=== PATIENT | female | born 1980 | race African-American/Black ===

== ENCOUNTER 2023-02-14 12:26 | Emergency (ER) | payer SELFPAY ==
[2023-02-14 12:54] VITALS: BP 124/70; PULSE 79; RESP 16; TEMP 36.6; O2SAT 99
--- NOTE | 2023-02-14 13:57 | ED.GENADULT ---
HPI - General Adult General Chief complaint: Upper Respiratory Infection Stated complaint: Headache/SOB Source: patient Mode of arrival: ambulatory Limitations: no limitations History of Present Illness HPI narrative: Patient presents for evaluation of a headache that she has experienced since yesterday. Pain is in the frontal area as well as in the occipital region of her head. Frontal pain is throbbing in nature and occipital pain is sharp in quality. She rates her pain 8/10 in severity. No fever, chills, nausea, vomiting. She is concerned because her daughter recently tested positive for COVID. Patient has had COVID in the past in her initial symptom was headache. She has also experienced a nonproductive cough and mild shortness of breath. She is not taking any medication to assist with her symptoms. She smokes a quarter pack per day. Related Data Home Medications Medication Instructions Recorded Confirmed No Home Medications 02/14/23 02/14/23 Allergies Allergy/AdvReac Type Severity Reaction Status Date / Time No Known Allergies Allergy Verified 02/14/23 13:01 Review of Systems Review of Systems: CONSTITUTIONAL: Denies fever, chills, or sweats. EYES: Denies visual changes, redness, or discharge. ENT: Denies rhinorrhea, congestion, sore throat, or otalgia. CARDIOVASCULAR: Denies chest pain, palpitations, or edema. RESPIRATORY: reports cough and mild shortness of breath GASTROINTESTINAL: Denies abdominal pain, nausea, vomiting, or diarrhea. GENITOURINARY: Denies dysuria or hematuria. SKIN: Denies rash or itching. MUSCULOSKELETAL: Denies back pain, joint pain, or myalgia. NEUROLOGIC: Reports headache. Denies numbness, dizziness, or weakness. PSYCHIATRIC: Denies anxiety or depression. [facility] Past Medical History Medical History No pertinent past medical history Surgical History Surgical History History of Family History Family History Mother Family history non-contributory Social History Social History Smoking packs per day: 0.25 Smoking cigarettes per day: 5.0 Smoking status: Current every day smoker Substance use: never Living arrangements: with family Gender identity (if verbalized by the patient): Female Sexual Orientation (if Verbalized by the Patient): Straight or Heterosexual Spiritual care concerns: No Exam Narrative: GENERAL: Well-appearing, well-nourished, and in no acute distress. HEAD: Normocephalic, atraumatic. EYES: PERRLA and EOMI. ENT: Nares clear, no rhinorrhea or epistaxis. Mucous membranes moist. Oropharynx without tonsillar hypertrophy exudate or other lesions. Bilateral TMs pearly ballesteros nonbulging NECK: Supple. No adenopathy or masses. No carotid bruits or JVD CHEST: Clear to auscultation. No respiratory distress. No wheezes rales or rhonchi HEART: Regular rate and rhythm. No murmur heard. Normal peripheral pulses. ABDOMEN: Soft, nontender, nondistended, normal active bowel sounds. EXTREMITIES: Normal range of motion. No edema. SKIN: Warm, dry, no rash. NEURO: No focal deficits. Alert and oriented x3. PSYCH: Normal mood and affect. Course Course Emergency Course: this is a 42-year-old female who presented for evaluation of cough and headache after recent COVID exposure. COVID test here today negative. Recommended she repeat her test in 48 hours. Increase hydration. Cclz-rwa-uamxeto agents for symptom management. Follow up with primary provider. Go to the emergency department for worsening symptoms. Patient in agreement with plan of care per Level of Care: Express Care Visit Vital Signs Vital signs: Vital Signs Temperature 36.6 C 02/14/23 12:54 Pulse Rate 79 02/14/23 12:5
== END 2023-02-14 14:08 | disposition home or self-care (01) ==
PROVIDERS: Emergency Provider Nurse Practitioner
DX: Z20.822 Contact with and (suspected) exposure to COVID-19 (principal); R51.9 Headache, unspecified; R06.02 Shortness of breath; F17.210 Nicotine dependence, cigarettes, uncomplicated
CPT/HCPCS: 87426; 99203; C9803; G0463

== ENCOUNTER 2023-10-03 10:54 | Outpatient (CLI) | payer OTHER, SELFPAY ==
[2023-10-03 13:02] LABS: Basophils Percent Auto 0.2 % (0.2-1.2); Eosinophils Absolute Auto 0.1 K/mm3 (0-0.3); Eosinophils Percent Auto 2.1 % (0-4.4); Hematocrit 30.9 % (37.0-47.0); Hemoglobin 8.9 g/dL (12.0-15.0); Immature Granulocyte Absolute 0.01 K/mm3 (0.00-0.031); Immature Granulocyte Percent A 0.2 % (0-0.5); Immature Platelet Fraction Pct 5.8 % (0.9-11.2); Lymphocytes Absolute Auto 1.65 K/mm3 (0.9-3.2); Lymphocytes Percent Auto 34.7 % (18.3-44.2); Mean Corpuscular HGB Conc 28.8 g/dl (32-36); Mean Corpuscular Hemoglobin 21.8 pg (26-34); Mean Corpuscular Volume 75.7 fl (80-100); Mean Platelet Volume 11.9 fl (7.4-10.4); Monocytes Absolute Auto 0.4 K/mm3 (0.1-0.6); Monocytes Percent Auto 7.6 % (2.6-8.5); Neutrophils Absolute Auto 2.6 K/mm3 (1.3-6.7); Neutrophils Percent Auto 55.2 % (45.5-73.1); Platelet Count Result 369 k/mm3 (150-375); Red Blood Count 4.08 M/mm3 (4.2-5.4); Red Cell Distribution Width 24.2 % (11.5-14.5); White Blood Count 4.8 K/mm3 (4.5-10.0)
[2023-10-03 13:05] LABS: Anisocytosis 2+; Microcytosis 2+ (NORMAL); Platelet Estimate Adequate (Adequate); Schistocytes None Seen
[2023-10-03 13:06] LABS: Hypochromasia 2+; Ovalocytes 1+; Poikilocytosis 1+
[2023-10-03 17:40] LABS: Iron 38 ug/dL (37-170)
[2023-10-03 17:50] LABS: Percent Iron Saturation 9 % (20-50)
[2023-10-03 17:57] LABS: Alanine Aminotransferase 14 U/L (6-35); Albumin Level 4.2 g/dL (3.5-5.1); Alkaline Phosphatase 64 U/L (38-126); Anion Gap 8 mmol/L (4-12); Aspartate Amino Transferase 23 U/L (14-36); Bilirubin,Total 0.3 mg/dL (0.2-1.3); Blood Urea Nitrogen 11 mg/dL (7-17); Carbon Dioxide 20 mmol/L (22-30); Chloride 112 mmol/L (98-107); Estimated Glomerular Filt Rate > 60; Glucose 98 mg/dL (65-110); Lactate Dehydrogenase 155 U/L (120-246); Potassium 3.7 mmol/L (3.4-5.0); Sodium 140 mmol/L (137-145)
[2023-10-03 19:04] LABS: Folic Acid 7.6 ng/mL (2.76->20)
[2023-10-08 03:38] LABS: Methylmalonic Acid 77 nmol/L (87-318)
[2023-10-09 12:43] LABS: Soluble Transferrin Receptor 4.02 mg/L (0.76-1.76)
== END 2023-10-03 11:00 | disposition home or self-care (01) ==
PROVIDERS: Nurse Practitioner Family; PCP Nurse Practitioner Obstetrics & Gynecology; Visit Provider Internal Medicine Hematology & Oncology
DX: D50.0 Iron deficiency anemia secondary to blood loss (chronic) (principal)
CPT/HCPCS: 36415; 80053; 82607; 82728; 82746; 83540; 83550; 83615; 83921; 84238; 85025; 85055

== ENCOUNTER → 2023-10-27 00:37 | Day surgery (SDC) | payer OTHER, SELFPAY ==
[2023-10-20 14:39] VITALS: BMI 45.8
--- NOTE | 2023-10-20 14:40 | PC.NURSE ---
Report to the Outpatient Waiting Room, entrance under the green pavilion located off [facility], at time _0800_ on date _[id number]_. Planned Procedure Time: _1000_. Time changes happen often and if your time is changed the preop area will call you the afternoon before. - You and your visitor will be asked to self-screen and do not enter if you have any COVID symptoms. - A mask is optional within the hospital at this time. Patients may have clear liquids (water, carbonated beverages, clear teas, apple juice) until 3 hours prior to surgery with a maximum of 20 ounces. - No food from midnight until time of surgery Take the following medications with a SIP of water the morning of surgery: ___None DO NOT STOP ANY OF YOUR OTHER PRESCRIPTION MEDICATIONS PRIOR TO SURGERY ?EXCEPT THE FOLLOWING Medications to discontinue per physician None Date to take last dose Please no make-up, nail [facility] helen[facility], hairspray, perfume, deodorant, or body powder the day of surgery. No jewelry (including any body piercings) or valuables the day of surgery, leave them at home. Please take a shower or bath the night before, or the morning of, surgery with an antibacterial soap. Wear comfortable, loose fitting clothing. - Jewelry must be removed prior to entering the operating room. Rings and piercings that are not removed may be cut off. - The hospital will not accept responsibility for valuables. - Please leave all valuables, including medications, at home the day of surgery. If you are going home after surgery, a licensed patient transportation driver must drive you home. - NO public transportation without another adult if you receive anesthesia. - We recommend that an adult stay with you for 24 hours following discharge. - We also recommend that you do not drive, make important decision, drink alcoholic beverages, or take any drugs that were not prescribed by your health care provider for at least 24 hours after your discharge time. Follow any additional instructions given to you from your surgeon. If you or anyone in your household have experienced Covid symptoms in the past week, please notify your surgeon or the nurse liaison at the phone number below for possible testing. Telephone instructions given to __Kana and asked if any additional questions and then verbalized understanding. Patient advised to call surgeon office or pre surgery nurse liaison [phone] if any additional questions.
[2023-10-27] VITALS (9 sets, daily range): BP systolic 124–149; BP diastolic 64–88; PULSE 75–94; RESP 14–18; TEMP 36.1–36.6; O2SAT 99–100
[2023-10-27 08:35] LABS: Hematocrit 30.9 % (37.0-47.0); Hemoglobin 8.8 g/dL (12.0-15.0)
[2023-10-27] MEDS: ACETAMINOPHEN 500 MG TABLET 1000 MG PO (08:50)
--- NOTE | 2023-10-27 09:29 | PM.IMHP ---
H&P: HPI History of Present Illness Date/Time: 10/27/23 09:29 Chief Complaint: abnormal uterine bleeding Narrative: Patient is a 43 year old female who presents for hysteroscopy and endometrial ablation. She reports a long history of abnormal bleeding. She has tried multiple medical management options without improvement. EMB was normal in office. She would like to proceed with endometrial ablation as surgical management of abnormal uterine bleeding. Denies abdominal pain, nausea, vomiting, or dysuria. Review of Systems Review of Systems: All systems reviewed & are unremarkable except as noted in HPI and below PMFSH Past Medical History Medical History No pertinent past medical history Surgical History Surgical History History of Family History Family History Mother Family history non-contributory Social History Social History Smoking packs per day: 0.5 Smoking cigarettes per day: 10.0 Years smoked: 20 Smoking pack-years: 10.00 Smoking status: Former smoker Smoking end date: 10/19/20 Alcohol intake: current Drinks per week: 2 Substance use: never Living arrangements: with family Gender identity (if verbalized by the patient): Female Sexual Orientation (if Verbalized by the Patient): Straight or Heterosexual Spiritual care concerns: No Meds Home Medications and Allergies Home Medications Medication Instructions Recorded Confirmed Type docusate sodium 100 mg capsule 100 mg PO DAILY 10/20/23 10/20/23 History (Colace) ferrous gluconate 240 mg (27 mg 240 mg PO TID 10/20/23 10/20/23 History iron) tablet polyethylene glycol 3350 17 17 g PO DAILY 10/20/23 10/20/23 History gram/dose oral powder (Miralax) Allergies Allergy/AdvReac Type Severity Reaction Status Date / Time No Known Allergies Allergy Verified 10/27/23 09:10 Vital Signs Vital Signs - 24 hr 10/27/23 08:50 Temperature 96.9 F L Pulse Rate 75 Respiratory Rate 14 Blood Pressure 137/87 Pulse Oximetry 100 Oxygen Delivery Room Air Exam Const: General: comfortable and no acute distress HENMT: Mouth: Yes moist mucous membranes Neck: Neck: supple Resp: Effort & Inspection: normal respiratory effort Cardio: Rate: regular rate Rhythm: regular rhythm Skin: General skin exam: normal color Extrem: General: normal to inspection Psych: Mental Status: mental status grossly normal H&P: Results Labs Labs: Short CBC 10/27/23 Range/Units 08:26 Hgb 8.8 L (12.0-15.0) g/dL Hct 30.9 L (37.0-47.0) % Assessment and Plan Assessment and plan (1) Abnormal uterine bleeding: Code(s): N93.9 - Abnormal uterine and vaginal bleeding, unspecified Status: Acute Assessment and Plan: - failed multiple medical management options, desires surgical management - risks, benefits, alternatives on endometrial ablation discussed with patient, who voices understanding - EMB normal, no malignancy or hyperplasia - will proceed with hysteroscopy and endometrial ablation
--- NOTE | 2023-10-27 09:33 | WPDHPUPDATE1 ---
History and Physical Update Update Date/Time: 10/27/23 09:33 History and Physical has been reviewed, including an updated exam of the patient. There are NO changes in the patient's condition. Risks, benefits, and alternatives have been discussed and questions answered. Patient agrees to proceed with procedure.
--- NOTE | 2023-10-27 09:44 | WPDANESEPPF ---
Anes - Initial Pre Proc Eval Procedure: Operation Date: 10/27/23 10:00 Proposed Procedures p Hysteroscopy with Rehana Endometrial Ablation - Meek Barnett MD Date/Time: 10/27/23 09:44 Surgeon: Meek Barnett MD Pre Op Diagnosis: Abnormal Uterine Bleeding Patient Data Age: 43 Gender: F Height: 1.57 m Weight: 115.4 kg Last Vital Signs Temp 36.1 C L 10/27/23 08:50 Pulse 75 10/27/23 08:50 Resp 14 10/27/23 08:50 BP 137/87 10/27/23 08:50 Pulse Ox 100 10/27/23 08:50 O2 Del Method Room Air 10/27/23 08:50 Allergies Allergy/AdvReac Type Severity Reaction Status Date / Time No Known Allergies Allergy Verified 10/27/23 09:10 Home Medications Medication Instructions Recorded Confirmed Type docusate sodium 100 mg capsule 100 mg PO DAILY 10/20/23 10/20/23 History (Colace) ferrous gluconate 240 mg (27 mg 240 mg PO TID 10/20/23 10/20/23 History iron) tablet polyethylene glycol 3350 17 17 g PO DAILY 10/20/23 10/20/23 History gram/dose oral powder (Miralax) Laboratory Tests 10/27/23 08:26 Hgb 8.8 L g/dL (12.0-15.0) Hct 30.9 L % (37.0-47.0) Patient hx anesthesia problems: none Family hx anesthesia problems: none Results Review: All pre-operative results and documents have been reviewed as part of the pre-operative evaluation. [facility] Past Medical History Medical History No pertinent past medical history Surgical History Surgical History History of Family History Family History Mother Family history non-contributory Social History Social History Smoking packs per day: 0.5 Smoking cigarettes per day: 10.0 Years smoked: 20 Smoking pack-years: 10.00 Smoking status: Former smoker Smoking end date: 10/19/20 Alcohol intake: current Drinks per week: 2 Substance use: never Living arrangements: with family Gender identity (if verbalized by the patient): Female Sexual Orientation (if Verbalized by the Patient): Straight or Heterosexual Spiritual care concerns: No Anes - Eval Final PreProcedure Day of Procedure 10/27/23 09:44 Patient weight: morbidly obese Heart: regular rate and rhythm Lungs: clear to auscultation Airway: Mallampati scale class III Neurological: alert and oriented Last oral intake: >/= 8 hours ASA classification: III Emergent: no Anesthetic plan: proceed Anesthesia type and monitoring: general LMA and standard monitoring Results Review: All pre-operative results and documents have been reviewed as part of the pre-operative evaluation. Informed Consent: The patient's anesthetic plan and its attendant risks and benefits were discussed with the patient/family/POA. Questions were solicited and answers provided to the satisfaction of the patient/family/POA.
[2023-10-27] MEDS: LIDO 1%/EPINEPHRINE 1:100,000 50 ML VIAL 10 ML INFILTRATE (09:58)
[2023-10-27] MEDS: LACTATED RINGERS 1,000 ML 30 ML IV CONT (10:06)
--- NOTE | 2023-10-27 10:27 | W.PM.PROC2 ---
Procedure Note - Detailed Date of Procedure 10/27/23 Pre-op Diagnosis Abnormal Uterine Bleeding Post-op Diagnosis Same Procedure Performed hysteroscopy, endometrial ablation Surgeon Meek Barnett MD Anesthesia MAC Indications abnormal uterine bleeding, negative EMB Findings normal appearing uterine cavity on hysteroscopy, both tubal ostia visualized Description of Procedure The patient was then taken to the operating room with IVFs running. She was placed in the dorsal supine position where she received MAC anesthesia without any difficulty.?? The patient was placed in the dorsal lithotomy position using dallas stirrups. EUA revealed the above findings. She was then prepped and draped in a normal sterile fashion. A time-out procedure was performed and all members of the OR team agreed on the patient and plan. A bivalved speculum was then inserted into the patient's vagina.? The anterior lip of the cervix was grasped with a single tooth tenaculum. A paracervical block of 1% lidocaine with epinephrine was injected. The cervical os was dilated using kyle dilators.? The uterus was sounded to 10 cm.? At this point, the? hysteroscope was then inserted into the uterine cavity. Saline was used as the distension medium. The above findings were noted. Both tubal ostia were visualized and pictures were taken.? The hysteroscope was then removed. The cervical length was then measured using the dilator and measured 4.5 cm.? The cervix was further dilated to accommodate the Rehana device. The Rehana device was then opened and the uterine cavity length set at 5.5 cm.? The device was deployed, the mesh examined, and then reinserted into the sheath.? The device was then inserted into the uterine cavity, deployed, and cavity width measurement was appropriate.? The cavity assessment was performed and was within normal limits.? The device was then activated.? Once the ablation was completed the device was removed and the hysteroscope reinserted.? The burn was noted to be equal and adequate.? The hysteroscope and tenaculum were removed.? The anterior lip of the cervix was hemostatic, the bivalve speculum was then removed.? The patient tolerated the procedure well.? Sponge, lap, needle, and instrument counts were correct X3.? The patient was taken out of the dorsal lithotomy position and awakened from anesthesia and taken to the recovery room in stable condition. Complications No immediate complications Condition Stable Disposition Same day
[2023-10-27] MEDS: fentaNYL CITRATE INJ (*CRX) 100 MCG/2 ML VIAL 25 MCG IV PUSH ×2 (11:04→11:13)
[2023-10-27] MEDS: oxyCODONE HCL (*CRX) 5 MG TAB IR PO (12:25)
== END | disposition home or self-care (01) ==
PROVIDERS: Anesthesiology; Visit Provider Obstetrics & Gynecology
PROC: 0U5B8ZZ Destruction of Endometrium, Via Natural or Artificial Opening Endoscopic (ICD-10-PCS; CPT 58563; principal; 2023-10-27 10:00)
DX: N93.9 Abnormal uterine and vaginal bleeding, unspecified (principal); E66.01 Morbid (severe) obesity due to excess calories; Z68.42 Body mass index [BMI] 45.0-49.9, adult; Z98.890 Other specified postprocedural states; Z87.891 Personal history of nicotine dependence
CPT/HCPCS: 58563; 36415; 85014; 85018; A9270; J1100; J2250; J2405; J2704; J3010; J7120

== ENCOUNTER 2023-12-11 12:22 | Emergency (ER) | payer OTHER, SELFPAY ==
[2023-12-11 12:42] VITALS: BP 134/87; PULSE 91; RESP 14; TEMP 36.2; O2SAT 99
--- NOTE | 2023-12-11 14:05 | ED.DENTAL ---
HPI - Dental/Oral General Chief complaint: Dental/Oral Stated complaint: tooth ache Time Seen by Provider: 12/11/23 14:05 Source: patient Mode of arrival: ambulatory Limitations: no limitations History of Present Illness HPI Narrative: Patient is a 43 y/o female who presents to the ED with c/o L upper dental pain. Patient reports a known fracture to left upper posterior molar, tooth #15. Reports she began having pain along with 2 this morning. Reports sensitivity to hot and cold. She tried Aleve and Advil earlier today without much improvement. She recently obtained new insurance and is waiting to see a dentist. Denies difficulty breathing or swallowing. Denies fevers. Denies vomiting. Related Data Home Medications Medication Instructions Recorded Confirmed docusate sodium 100 mg capsule 100 mg PO DAILY 10/20/23 10/20/23 (Colace) ferrous gluconate 240 mg (27 mg 240 mg PO TID 10/20/23 10/20/23 iron) tablet polyethylene glycol 3350 17 17 g PO DAILY 10/20/23 10/20/23 gram/dose oral powder (Miralax) Allergies Allergy/AdvReac Type Severity Reaction Status Date / Time No Known Allergies Allergy Verified 10/27/23 09:10 Review of Systems Review of Systems: CONSTITUTIONAL: Denies fever, chills, or sweats. ENT: See HPI. CARDIOVASCULAR: Denies chest pain. RESPIRATORY: Denies cough or dyspnea. GASTROINTESTINAL: Denies abdominal pain, nausea, vomiting All systems reviewed & are unremarkable except as noted in HPI and below PMFSH Past Medical History Medical History No pertinent past medical history Surgical History Surgical History History of Family History Family History Mother Family history non-contributory Social History Social History Smoking packs per day: 0.5 Smoking cigarettes per day: 10.0 Years smoked: 20 Smoking pack-years: 10.00 Smoking status: Former smoker Smoking end date: 10/19/20 Alcohol intake: current Drinks per week: 2 Substance use: never Living arrangements: with family Gender identity (if verbalized by the patient): Female Sexual Orientation (if Verbalized by the Patient): Straight or Heterosexual Spiritual care concerns: No Exam Narrative: GENERAL: Uncomfortable appearing, morbidly obese with BMI of 45.6, non-toxic, in no acute distress. HEAD: Normocephalic, atraumatic. ENT: Tenderness to palpation along tooth 15, left upper gumline. Some erythema noted of gumline. No focal fluctuance or evidence of abscess. No stridor or trismus. no tonsillar hypertrophy or exudate. RESPIRATORY: Airway patent, respirations nonlabored. No stridor or distress. CARDIOVASCULAR: Regular rate and rhythm MUSCULOSKELETAL: Moves all extremities. No gross deformities. SKIN: Warm, dry, normal color. NEURO: A&O X3. Speech clear. PSYCHIATRIC: Appropriate mood and affect. Normal interaction. Course Vital Signs Vital signs: Vital Signs Temperature 97.2 F L 12/11/23 12:42 Pulse Rate 91 12/11/23 12:42 Respiratory Rate 14 12/11/23 12:42 Blood Pressure 134/87 12/11/23 12:42 Pulse Oximetry 99 12/11/23 12:42 Temperature 97.2 F L 12/11/23 12:42 Pulse Rate 86 12/11/23 14:21 Respiratory Rate 18 12/11/23 14:21 Blood Pressure 134/76 12/11/23 14:21 Pulse Oximetry 98 12/11/23 14:21 MDM - Dental/Oral MDM Narrative Medical decision making narrative: Patient's pain is consistent with dental caries. There are no focal signs of space-occupying abscess. The patient is controlling secretions well without signs of airway compromise. Patient is felt reasonable for outpatient follow-up with dental evaluation. Start patient on Augmentin. Will provide short course of pain medi
[2023-12-11] MEDS: HYDROcodone/acetaminophen (*CRX) 5-325 MG TABLET 1 TAB PO (14:16)
[2023-12-11] MEDS: AMOXICILLIN/CLAVULANATE K 875-125 MG TAB 1 TABLET PO (14:16)
[2023-12-11 14:21] VITALS: BP 134/76; PULSE 86; RESP 18; O2SAT 98
== END 2023-12-11 14:33 | disposition home or self-care (01) ==
LOC: ANHED 14:21
PROVIDERS: Emergency Provider Physician Assistant
DX: K02.9 Dental caries, unspecified (principal); Z87.891 Personal history of nicotine dependence
CPT/HCPCS: 99283; A9270

== ENCOUNTER 2024-01-08 10:46 | Outpatient (CLI) | payer OTHER, SELFPAY ==
[2024-01-08 11:06] LABS: Basophils Percent Auto 0.2 % (0.2-1.2); Eosinophils Absolute Auto 0.1 K/mm3 (0-0.3); Eosinophils Percent Auto 2.3 % (0-4.4); Hemoglobin 9.8 g/dL (12.0-15.0); Immature Granulocyte Absolute 0.01 K/mm3 (0.00-0.031); Immature Granulocyte Percent A 0.2 % (0-0.5); Lymphocytes Percent Auto 33.8 % (18.3-44.2); Mean Corpuscular HGB Conc 29.7 g/dl (32-36); Mean Corpuscular Hemoglobin 22.7 pg (26-34); Mean Corpuscular Volume 76.4 fl (80-100); Mean Platelet Volume 11.1 fl (7.4-10.4); Monocytes Absolute Auto 0.4 K/mm3 (0.1-0.6); Monocytes Percent Auto 8.6 % (2.6-8.5); Neutrophils Absolute Auto 2.4 K/mm3 (1.3-6.7); Neutrophils Percent Auto 54.9 % (45.5-73.1); Platelet Count Result 350 k/mm3 (150-375); Red Blood Count 4.32 M/mm3 (4.2-5.4); Red Cell Distribution Width 19.9 % (11.5-14.5); White Blood Count 4.4 K/mm3 (4.5-10.0)
[2024-01-08 11:15] LABS: Hypochromasia 2+; Platelet Estimate Adequate (Adequate); Schistocytes None Seen
[2024-01-08 11:16] LABS: Anisocytosis 1+; Microcytosis 1+ (NORMAL); Ovalocytes 1+; Poikilocytosis 1+
[2024-01-08 12:34] LABS: Iron 32 ug/dL (37-170)
[2024-01-08 12:39] LABS: Alanine Aminotransferase 18 U/L (6-35); Albumin Level 4.2 g/dL (3.5-5.1); Alkaline Phosphatase 68 U/L (38-126); Anion Gap 11 mmol/L (4-12); Aspartate Amino Transferase 19 U/L (14-36); Bilirubin,Total 0.3 mg/dL (0.2-1.3); Blood Urea Nitrogen 13 mg/dL (7-17); Calcium 9.2 mg/dL (8.4-10.2); Carbon Dioxide 24 mmol/L (22-30); Chloride 105 mmol/L (98-107); Estimated Glomerular Filt Rate > 60; Glucose 93 mg/dL (65-110); Potassium 3.8 mmol/L (3.4-5.0); Sodium 140 mmol/L (137-145)
[2024-01-08 13:02] LABS: Percent Iron Saturation 7 % (20-50)
[2024-01-08 13:13] LABS: Ferritin 5.35 ng/mL (6.24-137)
[2024-01-08 13:45] LABS: Folic Acid 10.1 ng/mL (2.76->20)
== END 2024-01-08 10:47 | disposition home or self-care (01) ==
LOC: ANHLAB 10:50
PROVIDERS: Nurse Practitioner Family; Visit Provider Internal Medicine Hematology & Oncology
DX: D50.0 Iron deficiency anemia secondary to blood loss (chronic) (principal)
CPT/HCPCS: 36415; 80053; 82607; 82728; 82746; 83540; 83550; 85025